=== PATIENT | male | born 1985 | race Two or more races ===

== ENCOUNTER 2020-12-28 04:50 | Emergency (ER) | payer SELFPAY ==
[~2020-12-28] VITALS: Ht 177.8 cm; Wt 100.0 kg
[2020-12-28] MEDS ORDERED: SODIUM CHLORIDE FLUSH 10ML SYR IVF ONE (05:00)
[2020-12-28] MEDS ORDERED: SODIUM CHLORIDE 0.9% 1,000ML IVBOLUS ONE ×2 (05:00→06:30)
[2020-12-28] MEDS ORDERED: LORazepam 2 MG/ML, 1ML IVPush ONE (05:00)
[2020-12-28] MEDS ORDERED: LORazepam 2 MG/ML, 1ML ONE (05:23)
[2020-12-28 05:28] LABS: ALANINE AMINOTRANSFERASE 34 U/L (12-78); ALBUMIN 4.6 g/dL (3.4-5.0); ANION GAP 10 mmol/L (5-15); CALCIUM 9.5 mg/dL (8.5-10.1); CHLORIDE 104 mmol/L (98-107); CREATININE 1.02 mg/dL (0.7-1.3)
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
[2020-12-28] MEDS: PLEASE ENTER ALLERGIES MC SCH ×2 (05:30→08:25)
[2020-12-28 05:31] LABS: ALKALINE PHOSPHATASE 106 U/L (45-117); BILIRUBIN,TOTAL 0.9 mg/dL (0.2-1.0); TOTAL PROTEIN 8.6 g/dL (6.4-8.2)
[2020-12-28 05:32] LABS: BASOPHILS % (AUTO) 1 % (0-1); EOSINOPHILS % (AUTO) 0 % (1-7); LYMPHOCYTES % (AUTO) 23 % (22-44); MEAN CORPUSCULAR HEMOGLOBIN 29.6 pg (27.5-34.5); MEAN CORPUSCULAR HGB CONC 33.3 g/dL (33.2-36.2); MEAN PLATELET VOLUME 7.2 fL (7.4-10.4); MONOCYTES % (AUTO) 12 % (2-9); NEUTROPHILS % (AUTO) 64 % (42-75); PLATELET COUNT 407 x10^3/uL (130-400); RED BLOOD COUNT 5.65 x10^6/uL (4.38-5.82); RED CELL DISTRIBUTION WIDTH 14.8 % (9.4-14.8); SALICYLATE LEVEL < 1.7 mg/dL (2.8-20.0)
[2020-12-28 05:33] LABS: MD NO
--- NOTE | 2020-12-28 06:17 | NUR ---
AMBULATORY TO RESTROOM. SAMPLE COLLECTED & SENT. GIVEN ICE WATER. DENIES ANY NEEDS. WILL CTM.
[2020-12-28 06:36] LABS: AMPHETAMINE SCREEN, URINE Positive (Negative); BARBITURATE SCREEN, URINE Negative (Negative); BENZODIAZEPINE SCREEN, URINE Negative (Negative); CANNABINOID SCREEN, URINE Negative (Negative); COCAINE SCREEN, URINE Negative (Negative); METHADONE SCREEN, URINE Negative (Negative); OPIATE SCREEN, URINE Negative (Negative)
--- NOTE | 2020-12-28 06:58 | NUR ---
ASSUMED CARE OF PT. PT FOUND SITTING IN [facility]. BLANKET PROVIDED.
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
[2020-12-28] MEDS ORDERED: LORazepam 1MG TABLET ONE (09:24)
[2020-12-28 09:27] VITALS: BP 146/96
[2020-12-28] MEDS ORDERED: LORazepam 1MG TABLET PO ONE (09:30)
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
== END 2020-12-28 11:32 | disposition home or self-care (01) ==
LOC: ED 10:54
DX: F33.9 Major depressive disorder, recurrent, unspecified (principal); F10.220 Alcohol dependence with intoxication, uncomplicated; F41.9 Anxiety disorder, unspecified; F15.10 Other stimulant abuse, uncomplicated; I10 Essential (primary) hypertension; Y90.0 Blood alcohol level of less than 20 mg/100 ml
CPT/HCPCS: 36415; 71045; 80053; 80299; 80307; 80320; 83735; 85025; 93005; 96361; 96374; 99285; J2060; J7030; 80329; G0480